=== PATIENT | male | born 1955 | race Caucasian/White ===

== ENCOUNTER 2016-10-07 07:00 | Inpatient (IN) | payer OTHER, MEDICARE ==
[~2016-10-07] VITALS: Ht 162.6 cm; Wt 117.9 kg
[~2016-10-07 07:00] MED LIST: ASPIRIN EC81 M1 PO; BENICAR HCT 401 EAC1 PO; CRESTOR40 M2 PO; DICLOFENAC SOD2.5 M1; FARXIGA10 M1 PO; HUMALOG100 UNIT/1; KOMBIGLYZE XR1 EAC2 PO; LYRICA100 M1 PO; PREDNISOLONE ACE5 ML; TIZANIDINE HCL4 M1 PO; TRAMADOL HCL50 M1 PO; TRAZODONE HCL100 M1 PO
--- NOTE | 2016-11-14 11:29 | Admission Core Measures ---
Admission Meds I reviewed the following Meds: Current Medications Sig/Matt Start time Last Medication Dose Stop Time Status Admin Cefazolin Sodium 2,000 MG ONCE 11/14 0000 NR (Kefzol-Ancef Inj) 11/14 2358 Dexamethasone 10 MG ONCE 11/14 0000 NR (Decadron) 11/14 2358 Heparin Sodium 5,000 UNIT ONCE 11/14 0000 NR (Porcine) 11/14 2358 Acute Coronary Syndrome Inclusion Criteria ACS Diagnosis No Inpatient Core Measures LDL Reminder: If No, please order W/I first 24hr of stay Congestive Heart Failure Inclusion Criteria CHF Diagnosis No Cerebrovascular accident Inclusion Criteria CVA/TIA Diagnosis No Inpatient Core Measures Bedside Swallow Eval Reminder: If BSE failed, place ST order Antithrombotic Reminder: Order Antithrombotic Medication by end of day 2 Antithrombotic Reminder: Document Reason Antithrombotic Not ordered by end of day 2 AFIB/Flutter Reminder: If Present, add to problem list AFIB/Flutter Reminder: Order Anticoag Medication for pts with AFIB/Flutter Atherosclerosis Reminder: If Present, add to problem list LDL Reminder: If No, please order W/I first 24hr of stay PT Order Reminder: If No, please order Venous thromboembolism Inpatient Core Measures VTE Risk Factors: Age > 40, Obesity, Surgery [facility] prophylaxis d/t No contraindications No VTE Pharm Prophylaxis d/t No contraindications Inclusion Criteria - Per Current guidelines, there needs to be overlap - treatment for the first 5 days of Warfarin therapy. - Parenteral Anticoagulation (IV or SC) needs to be - given along with Warfarin therapy. VTE Diagnosis No VTE Type NONE VTE Confirmed by (Test) NONE Problem List As ranked by this Provider includes Assessment & Plan 1. Morbid obesity 2. Hypertension 3. Diabetes 4. S/P laparoscopic sleeve gastrectomy HOME MEDS Home Med List Aspirin (Ecotrin*) 81 MG TABLET.DR 1 TAB PO DAILY PROPHO (Reported) Dapagliflozin Propanediol (Farxiga) 10 MG TABLET 1 TAB PO DAILY DM (Reported) Diclofenac Sodium 0.1 % DROPS 1 DROP BID EYE INFLAMMATION (Reported) Olmesartan/Hydrochlorothiazide (Benicar Hct 40-25 MG Tablet) 40 MG-25 MG TABLET 1 TAB PO DAILY HTN (Reported) Prednisolone Acetate 1 % DROPS.SUSP 1 DROP BID EYE INFLAMMATION (Reported) Pregabalin (Lyrica) 100 MG CAPSULE 1 TAB PO BID NEUROPATHY (Reported) Rosuvastatin Calcium (Crestor) 40 MG TABLET 1 TAB PO DAILY CHOL (Reported) Saxagliptin HCl/Metformin HCl (Kombiglyze XR 2.5-1,000 MG Tab) 2.5 MG-1,000 MG TBMP.24HR 1 TAB PO BID DM (Reported) Tizanidine HCl 4 MG TABLET 1 TAB PO TID PRN SPASM (Reported) Tramadol HCl 50 MG TABLET 1 TAB PO EVERY 6 HRS PRN PAIN (Reported) Trazodone HCl 100 MG TABLET 1 TAB PO NIGHTLY SLEEP (Reported)
--- NOTE | 2016-11-14 11:35 | Surg Short-stay <48hrs Dis Sum ---
See Addendum Visit Information Visit Dates Admission Date: 11/14/16 Discharge Date: 11/16/16 Surgical Short Stay DC Summary Admission Diagnosis: MORBID OBESITY, HX IDDM, HTN Final Diagnosis: SAME, S/P SLEEVE GASTRECTOMY (11/14/16) Procedure(s): LAPAROSCOPIC SLEEVE GASTRECTOMY (11/14/16) Summary/Significant Findings: Electively scheduled laparoscopic sleeve gastrectomy by (11/14/16), which went routinely. called for consult immediately for diabetes requiring insulin pump, co-management. Stage 1 bariatric diet started post-op, and upper GI study done on post-op day#1 to rule out sleeve leak. Lovenox teaching done prior to discharge to home. Medications clarified with for discharge planning purposes with respect to management of his diabetes. Condition at Discharge: stable Discharge Disposition: home or self care Discharge instructions provided to patient/family: Yes Post discharge follow-up plan: one week follow up appointment with discharge instructions/education provided lovenox teaching done for home use prescriptions given for pain control and protonix management of diabetes as per
--- NOTE | 2016-11-14 11:50 | Patient Discharge Instructions ---
Discharge Instructions General Discharge Information You were seen/treated for: morbid obesity, hx iddm, htn You had these procedures: laparoscopic sleeve gastrectomy (11/14/16) Watch for these problems: fever>101.3, increased pain, redness/swelling/drainage, dizziness, shortness of breath, chest pains No bath, but you may shower: Yes Other wound care: ok to remove outer dressings. leave white steri strips in place. keep incisions clean & dry. ok to shower. Diet Continue normal diet: Yes Recommended Diet: Bariatric Additional DIET Information: weekly bariatric stage diet advancements as tolerated, as directed Activity Full Activity/No Limits: No Activity Self Limited: Yes Pounds, do NOT lift more than: 10 Other activity limits: no heavy lifting. no strenuous activity. Additional ACTIVITY Info: walk frequently Acute Coronary Syndrome Inclusion Criteria At DC or during hospital stay patient has or had the following: ACS DIAGNOSIS No Discharge Core Measures Meds if any: Prescribed or Continued at Discharge Meds if any: NOT Prescribed or Continued at Discharge Congestive Heart Failure Inclusion Criteria At DC or during hospital stay patient has or had the following: CHF DIAGNOSIS No Discharge Core Measures Meds if any: Prescribed or Continued at Discharge Meds if any: NOT Prescribed or Continued at Discharge Cerebrovascular accident Inclusion Criteria At DC or during hospital stay patient has or had the following: CVA/TIA Diagnosis No Discharge Core Measures Meds if any: Prescribed or Continued at Discharge Meds if any: NOT Prescribed or Continued at Discharge Venous thromboembolism Inclusion Criteria VTE Diagnosis No VTE Type NONE VTE Confirmed by (Test) NONE Discharge Core Measures - Per Current guidelines, there needs to be overlap - treatment for the first 5 days of Warfarin therapy. - If discharged on Warfarin prior to 5 days of - overlap therapy, the patient will need to be - assessed for post discharge needs including - *Post discharge parental anticoagulation - *Warfarin and/or parental anticoagulation education - *Follow up date to check INR post discharge At least 5 days overlap therapy as Inpatient No Meds if any: Prescribed or Continued at Discharge Note: Overlap Therapy is Warfarin and Anticoagulant Meds if any: NOT Prescribed or Continued at Discharge
[2016-11-14] MEDS ORDERED: HYCET 7.5 MG-3473 ML PO (11:56)
[2016-11-14] MEDS ORDERED: PROTONIX40 M3 PO (11:56)
[2016-11-14] MEDS ORDERED: LOVENOX40 MG/0.1 SC (11:56)
--- NOTE | 2016-11-14 13:09 | Cons- Endocrinology ---
General Information and HPI Consulting Request Date of Consult: 11/14/16 Requested By: surgical team Reason for Consult: management of DM type 2 Source of Information: patient, family Exam Limitations: no limitations History of Present Illness: Patient was admitted and s/p SLEEVE gastroplasty. He has had DM type 2. He used to be on Lantus 80 units daily, Humalog 18 units before meals, Kombiglyze XL 2.5 /1000 mg twice a day and Farxiga. Two years ago, he was put on Meditronic insulin pump. However, over past 3 days prior to the surgery, he wasn't on insulin pump and didn't receive any insulin as his glucose level was low. This morning, his glucose level was 146 prior to the surgery. During the operation, he received Decadron. Repeat FSG at 12 pm was 221. He feels nauseous and is receiving LR. Allergies/Medications Allergies: Coded Allergies: duloxetine (From CYMBALTA) (09/27/16) escitalopram (From LEXAPRO) (09/27/16) fluoxetine (09/27/16) levomilnacipran (From FETZIMA) (09/27/16) atorvastatin (From LIPITOR) (MYALGIAS 09/27/16) Home Med List: Aspirin (Ecotrin*) 81 MG TABLET.DR 1 TAB PO DAILY PROPHO (Reported) Dapagliflozin Propanediol (Farxiga) 10 MG TABLET 1 TAB PO DAILY DM (Reported) Diclofenac Sodium 0.1 % DROPS 1 DROP BID EYE INFLAMMATION (Reported) Enoxaparin Sodium (Lovenox) 40 MG/0.4 ML SYRINGE 0.4 ML SC DAILY blood clot risk reduction continue lovenox injections as directed prescription given pre-op Hydrocodone/Acetaminophen (Hycet 7.5 MG-325 MG/15 Ml Soln) 7.5 MG-325 MG/15 ML SOLUTION 15 ML PO Q4-6 PRN PRN pain control take as directed. do not combine with tylenol. Insulin Lispro (Humalog) 100 UNIT/ML CARTRIDGE INSULIN PUMP (Reported) Olmesartan/Hydrochlorothiazide (Benicar Hct 40-25 MG Tablet) 40 MG-25 MG TABLET 1 TAB PO DAILY HTN (Reported) Pantoprazole Sodium (Protonix) 40 MG TABLET.DR 1 TAB PO DAILY ulcer risk reduction take as directed for 2-3 months post-op Prednisolone Acetate 1 % DROPS.SUSP 1 DROP BID EYE INFLAMMATION (Reported) Pregabalin (Lyrica) 100 MG CAPSULE 1 TAB PO BID NEUROPATHY (Reported) Rosuvastatin Calcium (Crestor) 40 MG TABLET 1 TAB PO DAILY CHOL (Reported) Saxagliptin HCl/Metformin HCl (Kombiglyze XR 2.5-1,000 MG Tab) 2.5 MG-1,000 MG TBMP.24HR 1 TAB PO BID DM (Reported) Tizanidine HCl 4 MG TABLET 1 TAB PO TID PRN SPASM (Reported) Tramadol HCl 50 MG TABLET 1 TAB PO EVERY 6 HRS PRN PAIN (Reported) Trazodone HCl 100 MG TABLET 1 TAB PO NIGHTLY SLEEP (Reported) Review of Systems Review of Systems Constitutional: Reports: see HPI. GI: Reports: nausea. Hematologic/Endocrine: Reports: see HPI. Past History Medical History Cardiovascular: hypertension, hyperlipidemia Endocrine: diabetes type 2 Surgical History Surgical History: non-contributory Exam & Diagnostic Data Last 24 Hrs of Vital Signs/I&O vital signs stable Physical Exam General Appearance: sleepy due to anesthesia Neck: normal inspection Respiratory: lungs clear Cardiovascular: regular rate/rhythm Gastrointestinal: soft, distention Extremities: no edema Labs/Emre Results: FSG 221 at 12 pm today in PACU. Assessment/Plan Assessment/Plan Patient has diabetes type 2, was on Medtronics insulin pump prior to admission. He underwent SLEEVE gastroplasty this morning. He received Decadron in the OR. Currently he feels nauseous and is receiving LR. The most recent FSG was 221. DM management: 1. monitor FSG every 4 hours; 2. start Novolog coverage every 4 hours-- detail see the inpatient DM order; 3. his will bring in his insulin pump today and then I will review the settings. 4. monitor electrolytes at 3 pm. please inform me if his FSGs is > 250 twice and then his DM regimen will be adjusted accordingly. will follow. Consult Acknowledgment - Thank you for your consult request.
[2016-11-14 13:30] VITALS: BP 132/74
--- NOTE | 2016-11-14 14:00 | NUR ---
ADMISSION NOTE: PT ARRIVED TO FLOOR AT 1314. PT A&O, VSS CHARTED. PT AMBULATED FROM STRETCHER TO JULIANNA CHAIR. IVF INFUSING. 5 DRESSINGS TO ABD INTACT THE DSG TO RIGHT ABD AND LOWER ABD WITH SCANT BLOODY DNG. PT EDUCATED ON NEED FOR AMULATION AND DIET / LOG AT BEDSIDE. WILL CONTINUE TO MONITOR.
--- NOTE | 2016-11-14 15:55 | PN- Bariatrics ---
Subjective Subjective: PT. REPORTS FEELING "SORE" HAD MILD TRANSIENT NAUSEA EARLIER, NOW RESOLVED.NO EMESIS. DENIES CHEST PAIN OR SOB Objective Vital Signs and I&Os Vital Signs Date Time Temp Pulse Resp B/P Pulse O2 O2 Flow FiO2 Ox Delivery Rate 11/14 1400 95 Room Air Room Air 11/14 1330 98.1 82 18 132/74 94 Room Air Room Air Intake & Output 11/14 1600 11/14 0800 11/14 0000 11/13 1600 11/13 0800 11/13 0000 Intake Total 350 Output Total 225 Balance 125 Intake, IV 200 Intake, Oral 150 Output, Urine 225 Patient 260 lb Weight ALERT , ORIENTED, APPROPRIATE,LOOKS COMFORTABLE, SITTING IN CHAIR, FAMILY AT BEDSIDE HEART REGULAR LUNGS CLEAR ABDOMEN OBESE, SOFT. MULTIPLE PORT SITES. RUQ PORT SITE DRESSING SATURATED WITH BLOOD BUT WITHOUT ACTIVE BLEEDING EXTREMITIES WITHOUT CALVES PAIN Assessment/Plan Assessment/Plan S/P LAP. GASTRIC SLEEVE POD #0 STABLE HEMODYNAMICALLY, VITAL SIGNS IN ACCEPTABLE LIMITS ABDOMINAL EXAM EXPECTED. PORT SITES INTACT/ RUQ PORT SITE WITH BLOODY DRAINAGE BUT WITHOUT ACTIVE BLEED. PAIN CONTROLLED WITH CURRENT REGIMEN DM; ENDOCRINE CONSULT APPRECIATED.LAST BS WAS 215. HAS BEEN ON NOVALOG Q 4 HRS CONT. STAGE 1 DIET TOLERATED OOB ELECTROLYTES PENDING FOR 2 PM TODAY ROUTINE LABS PENDING FOR TOMORROW. Core Measures/Miscellaneous Venous Thromboembolism VTE Risk Factors: Age > 40, Obesity, Surgery VTE Contraindications: No Contraindications VTE Diagnosis: No VTE Type: NONE VTE Confirmed by (Test): NONE Beta Kal Is Beta Kal a Home Med? No Antibiotics Is Patient on Antibiotics? No
--- NOTE | 2016-11-14 16:54 | Operative Report ---
Operative/Inv Procedure Report Surgery Date: 11/14/16 Name of Procedure: Laparoscopic Sleeve Gastrectomy Pre-Operative Diagnosis: Morbid obesity, sleep apnea Post-Operative Diagnosis: same Estimated Blood Loss: less than 50ml Surgeon/Language Instructor: BROOKE DOUGLAS,Peter. STELLA Lino Anesthesia: general endotracheal tube IV Fluids: LR Urine Output: n/a Drains: none Specimens: portion of stomach Complications: none Condition: stable Operative Indication: see admission H&P Operative/Procedure Note Note: After informed consent and proper identification the patient was taken to the operating room and placed on the operating room table in the supine position Venodyne stockings were applied and underwent a general endotracheal anesthetic the abdomen was prepped and draped in normal sterile fashion using an Ethicon Visiport and a 0 laparoscope through 1 cm incision the left upper quadrant we entered the abdominal cavity without difficulty and insufflated with 14 mm of CO2 pressure. We had excellent visualization the liver was remarkably smooth glistening without any fatty infiltration. Additional trochars were placed 25 mm trochars in each of the subcostal margin a [place] liver retractor in the upper midline to retract the left lobe of the liver and a 15 mm trocar in the right mid abdomen we had anesthesia decompress the stomach with an orogastric tube and then remove it using a sonic excision scalpel divided the vascular attachments along the greater curvature of the stomach approximately 6 cm from the pylorus opposite the angularis. We had excellent visualization of the retrogastric space reflected the fundus of the stomach off the left rubin. We had anesthesia place a 38 Telugu bougie into the stomach and using this as a guide we used a Endo PEDRO stapler firing 2 black load cartridges with seam guard followed by 2 purple load cartridges with seam guard an additional 45 purple cartridge this completely transected the remnant stomach from the newly created sleeve. There is no significant bleeding. We had anesthesia remove the bougie we placed the remnant stomach in a 15 Endo Catch bag removed the specimen through the 15 mm trocar port we visualized the rest of the ports being removed from the abdominal cavity sponge and instrument counts were correct we closed the skin incisions with 4-0 Monocryl subcuticular stitches patient was extubated and taken the recovery room in stable condition Findings: small normal liver, no evidence of hiatal hernia Discharge Disposition: PACU
[2016-11-14 18:25] VITALS: BP 128/78
[2016-11-14 20:20] VITALS: BP 130/78
[2016-11-14 22:59] VITALS: BP 137/80
[2016-11-15 07:37] VITALS: BP 134/71
--- NOTE | 2016-11-15 08:09 | PN- General Surgery ---
Subjective Subjective: No overnight events. NO Nausea, vomiting and ambulating and voiding spontaneously. He reports he is concerned about his blood sugar level as he did not get his home insulin pump. No other complaints. Objective Vital Signs and I&Os Vital Signs Date Time Temp Pulse Resp B/P Pulse O2 O2 Flow FiO2 Ox Delivery Rate 11/15 0737 98.1 98 18 134/71 95 Room Air 11/15 0600 Room Air 11/14 2259 98.1 108 20 137/80 96 Room Air 11/14 2200 Room Air 11/14 2020 98.1 97 20 130/78 98 Room Air 11/14 1825 98.6 103 18 128/78 92 11/14 1800 95 Room Air Room Air 11/14 1658 Room Air Room Air 11/14 1400 95 Room Air Room Air 11/14 1330 98.1 82 18 132/74 94 Room Air Room Air Intake & Output 11/15 1600 11/15 0800 11/15 0000 11/14 1600 11/14 0800 11/14 0000 Intake Total 830 930 350 Output Total 900 1100 225 Balance -70 -170 125 Intake, IV 800 300 200 Intake, Oral 30 630 150 Output, Urine 900 1100 225 Patient 260 lb Weight Physical Exam: Not in any distress,, alert oriented 3 resting in chair. Lung sounds were clear to auscultate bilaterally with no additional sounds Heart regular rate and rhythm. Abdomen is obese soft nondistended appropriate tenderness to palpation in the upper abdomen near the incision site. The lateral PORT incision site for dressing was sustained with sanguinous fluid. No active drainage. Current Medications: Current Medications Sig/Matt Start time Last Medication Dose Route Stop Time Status Admin Acetaminophen 1,000 MG .STK-MED ONE 11/14 0953 DC IV 11/14 0954 Acetaminophen/ 15 ML Q6P PRN 11/14 1345 11/15 Hydrocodone Bitart PO 0603 Cefazolin Sodium 2,000 MG ONCE 11/14 0000 DC IV 11/14 235 Dexamethasone 10 MG ONCE 11/14 0000 DC IV 11/14 2359 Dextrose/Sodium 1,000 ML Q13H 11/14 1415 DC 11/14 Chloride IV 1419 Fentanyl Citrate 250 MCG .STK-MED ONE 11/14 0952 DC IM 11/14 0953 Heparin Sodium 5,000 UNIT Q8 11/14 2199 AC 11/15 (Porcine) SC 0603 Heparin Sodium 5,000 UNIT ONCE 11/14 0000 DC (Porcine) SC 11/14 2359 Hydromorphone HCl 1 MG Q4P PRN 11/14 1345 AC 11/14 IV 2218 Insulin Aspart 0 Q4 11/14 1400 AC 11/15 SC 0603 Ketorolac 1 GTT BID 11/14 2200 AC 11/14 Tromethamine OPH 2209 Lactated Ringer's 1,000 ML Q10H 11/14 1900 AC 11/15 IV 0255 Midazolam HCl 2 MG .STK-MED ONE 11/14 0952 DC IM 11/14 0953 Ondansetron HCl 4 MG Q6P PRN 11/14 1345 AC IV Pantoprazole Sodium 40 MG DAILY 11/15 1000 AC IV Prednisolone 1 GTT BID 11/14 2199 AC 11/14 OPH 2218 Pregabalin 100 MG BID 11/14 2200 AC 11/14 PO 2219 Simethicone 40 MG Q6P PRN 11/14 1345 AC 11/14 PO 1636 Tizanidine HCl 4 MG TID PRN 11/14 1600 AC PO Tramadol HCl 50 MG Q4-6 PRN PRN 11/14 1345 AC PO Tramadol HCl 100 MG Q4-6 PRN PRN 11/14 1345 AC PO Trazodone HCl 50 MG AT BEDTIME NEED.. 11/14 1345 AC PO Results Last 48 Hours of Labs: Laboratory Tests 11/14 1410 Chemistry Sodium (137 - 145 mmol/L) 128 L Potassium (3.5 - 5.1 mmol/L) 3.9 Chloride (98 - 107 mmol/L) 95 L Carbon Dioxide (22 - 30 mmol/L) 21 L Anion Gap (5 - 16) 12 BUN (9 - 20 mg/dL) 10 Creatinine (0.7 - 1.2 mg/dL) 0.6 L Estimated GFR (>60 ml/min) > 60 BUN/Creatinine Ratio (7 - 25 %) 16.7 Assessment/Plan Assessment/Plan 61-year-old obese male with a BMI 44 status post laparoscopic sleeve gastrectomy. pain is well controlled with current oral regimen and doing well. Therefore the plan is will follow up on the upper GI study today. Will remain nothing by mouth until the study . IF stud is negative for leak was initiated on stage I diet. Core Measures/Miscellaneous Venous Thromboembolism VTE Risk Factors: Age > 40, Obesity, Surgery VTE Contraindications: No Contraindications VTE Diagnosis: No VTE Type: NONE VTE Confirmed by (Test): NONE Beta Kal Is Beta Kal a Home Med? No Antibiotics Is Patient on Antibiotics? No
[2016-11-15 09:21] LABS: ABSOLUTE BASOPHIL COUNT 0 /CUMM (0.0-0.2); ABSOLUTE EOSINOPHIL COUNT 0 /CUMM (0.0-0.7); ABSOLUTE GRANULOCYTE CT 18.1 /CUMM (1.4-6.5); ABSOLUTE MONOCYTE COUNT 0.7 /CUMM (0.10-0.60); BASOPHIL % 0.1 % (0.0-2.0); EOSINOPHIL % 0 % (0-5); GRANULOCYTE % 91.5 % (42.2-75.2); HEMATOCRIT 43.5 % (42-52); MEAN CORPUSCULAR HGB 27.6 PG (27.0-31.0); MEAN CORPUSCULAR HGB CONC 33.2 G/DL (33.0-37.0); MEAN CORPUSCULAR VOLUME 83.2 FL (80.0-94.0); MEAN PLATELET VOLUME 9.4 FL (7.4-10.4); PLATELET COUNT 283 /CUMM (130-400); RBC DISTRIBUTION WIDTH 12.9 % (11.5-14.5); RED BLOOD CELL CT 5.22 /CUMM (4.70-6.10)
[2016-11-15 10:14] LABS: WHITE BLOOD CELL COUNT 19.8 /CUMM (4.8-10.8)
--- NOTE | 2016-11-15 12:19 | PN- Diabetes ---
See Addendum Assessment/Plan Assessment: Patient has diabetes type 2, was on Medtron[employer] insulin pump prior to admission. He underwent SLEEVE gastroplasty on 11/14/2016. He received Decadron 10 mg iv in the OR. His FSGs were 179, 226, 227, 242 and 207. He is still kept NPO. He is receiving NS at 75 ml/hour. At home, he was on Kombiglyze XL 2.12/999 mg twice a day, Farxiga 10 mg daily and Medtronic insulin pump with basal insulin of 94.3 units per 24 hours. Basal insulin: midnight 3.6 units per hour 7 am 4.1 units per hour 9 pm 3.9 units per hour IC ratio 5 grams Insulin sensitivity 10 mg/dl target 130-150 mg/dl active insulin time 4 hours. In hospital, he was put on Novolog coverage every 4 hours and his FSGs were 179, 226, 227, 242 and 207. Plan: 1. adjust Novolog coverage every 4 hours as he is still kept NPO--detail see the inpatient DM order. 2. monitor FSGs. will follow. Inpatient Diabetes Orders Every 4 Hours: Bolus Insulin: Novolog < 80 mg/dl: no coverage 80-100 mg/dl: no coverage 101-120 mg/dl: no coverage 121-150 mg/dl: no coverage 151-200 mg/dl: 3 units 201-250 mg/dl: 5 units 251-300 mg/dl: 7 units 301-350 mg/dl: 9 units 351-400 mg/dl: 11 units > 400 mg/dl: 13 units Subjective Subjective: He is still kept NPO. Objective Last 24 Hrs of Vital Signs/I&O Vital Signs Date Time Temp Pulse Resp B/P Pulse O2 O2 Flow FiO2 Ox Delivery Rate 11/15 0737 98.1 98 18 134/71 95 Room Air 11/15 0600 Room Air 11/14 2259 98.1 108 20 137/80 96 Room Air 11/14 2200 Room Air 11/14 2020 98.1 97 20 130/78 98 Room Air 11/14 1825 98.6 103 18 128/78 92 11/14 1800 95 Room Air Room Air 11/14 1658 Room Air Room Air 11/14 1400 95 Room Air Room Air 11/14 1330 98.1 82 18 132/74 94 Room Air Room Air Intake & Output 04/14 1600 11/15 0800 11/15 0000 Intake Total 830 930 Output Total 900 1100 Balance -70 -170 Intake, IV 800 300 Intake, Oral 30 630 Output, Urine 900 1100 Findings Pertinent Lab/Emre Results: Laboratory Tests 11/15 11/14 0835 1410 Chemistry Sodium (137 - 145 mmol/L) 136 L 128 L Potassium (3.5 - 5.1 mmol/L) 4.6 3.9 Chloride (98 - 107 mmol/L) 100 95 L Carbon Dioxide (22 - 30 mmol/L) 22 21 L Anion Gap (5 - 16) 15 12 BUN (9 - 20 mg/dL) 11 10 Creatinine (0.7 - 1.2 mg/dL) 0.8 0.6 L Estimated GFR (>60 ml/min) > 60 > 60 BUN/Creatinine Ratio (7 - 25 %) 13.8 16.7 Glucose (65 - 99 mg/dL) 226 H Magnesium (1.6 - 2.3 mg/dL) 1.7 Hematology CBC w Diff NO MAN DIFF REQ WBC (4.8 - 10.8 /CUMM) 19.8 H RBC (4.70 - 6.10 /CUMM) 5.22 Hgb (14.0 - 18.0 G/DL) 14.4 Hct (42 - 52 %) 43.5 MCV (80.0 - 94.0 FL) 83.2 MCH (27.0 - 31.0 PG) 27.6 RDW (11.5 - 14.5 %) 12.9 Plt Count (130 - 400 /CUMM) 283 MPV (7.4 - 10.4 FL) 9.4 Gran % (42.2 - 75.2 %) 91.5 H Lymphocytes % (20.5 - 51.1 %) 4.9 L Monocytes % (1.7 - 9.3 %) 3.5 Eosinophils % (0 - 5 %) 0 Basophils % (0.0 - 2.0 %) 0.1 Absolute Granulocytes (1.4 - 6.5 /CUMM) 18.1 H Absolute Lymphocytes (1.2 - 3.4 /CUMM) 1.0 L Absolute Monocytes (0.10 - 0.60 /CUMM) 0.7 H Absolute Eosinophils (0.0 - 0.7 /CUMM) 0 Absolute Basophils (0.0 - 0.2 /CUMM) 0 PUBS MCHC (33.0 - 37.0 G/DL) 33.2
--- NOTE | 2016-11-15 12:59 | NUR ---
Consult received for diet education s/p sleeve gastrectomy, thank you for consult. Visited with pt this morning, multiple family members present. Questions answered. Pt took another copy of post-op diet and provided another copy of vitamin handout and discussed. Pt has RD contact information and encouraged to call with any further questions. Discussed post-op nutrition visits as well which he is interested in and will get a referral from Dr Wehlan's office.
--- NOTE | 2016-11-15 13:01 | RADIOLOGY REPORT ---
EXAMINATION: FL UPPER GI SERIES CLINICAL INFORMATION: Status post gastric sleeve surgery. Postop day 1. To assess for presence or absence of gastric leak. COMPARISON: None TECHNIQUE: A single contrast upper GI series with fluoroscopy and spot imaging was performed. The patient ingested Gastrografin without difficulty and was evaluated in the upright and recumbent positions. FINDINGS: Normal expected postsurgical changes of gastric sleeve surgery is present. There is no evidence of any contrast extravasation to suspect Sleeve leak is evident. No evidence of any obstruction to the flow of liquid Gastrografin from the stomach into the duodenum. Incidental note is made of mild tertiary contractions in mid to distal thoracic esophagus, may represent underlying neuromuscular incoordination. FLUOROSCOPY TIME: 36 seconds. NUMBER OF IMAGES: 64 IMPRESSION: 1. Normal appearance of the gastric sleeve surgery. 2. Specifically, no Sleeve leak is visualized. 3. Intermittent tertiary contractions are noted at mid to distal thoracic esophagus, may represent underlying neuromuscular incoordination.
[2016-11-15 14:28] VITALS: BP 130/70
[2016-11-15 22:33] VITALS: BP 130/72
[2016-11-16 07:29] VITALS: BP 136/64
[2016-11-16 08:15] LABS: ABSOLUTE BASOPHIL COUNT 0.1 /CUMM (0.0-0.2); ABSOLUTE EOSINOPHIL COUNT 0 /CUMM (0.0-0.7); ABSOLUTE GRANULOCYTE CT 9.8 /CUMM (1.4-6.5); ABSOLUTE LYMPH COUNT 2.7 /CUMM (1.2-3.4); ABSOLUTE MONOCYTE COUNT 0.8 /CUMM (0.10-0.60); BASOPHIL % 0.7 % (0.0-2.0); EOSINOPHIL % 0.3 % (0-5); GRANULOCYTE % 72.9 % (42.2-75.2); HEMATOCRIT 43.9 % (42-52); MEAN CORPUSCULAR HGB 27.6 PG (27.0-31.0); MEAN CORPUSCULAR VOLUME 83.7 FL (80.0-94.0); MEAN PLATELET VOLUME 9.6 FL (7.4-10.4); PLATELET COUNT 277 /CUMM (130-400); RBC DISTRIBUTION WIDTH 13.4 % (11.5-14.5); RED BLOOD CELL CT 5.24 /CUMM (4.70-6.10); WHITE BLOOD CELL COUNT 13.5 /CUMM (4.8-10.8)
--- NOTE | 2016-11-16 08:41 | PN- Bariatrics ---
Subjective Subjective: resting comfortably no major complaints denies cp, sob, no n+v tolerating diet Objective Vital Signs and I&Os Vital Signs Date Time Temp Pulse Resp B/P Pulse O2 O2 Flow FiO2 Ox Delivery Rate 11/16 0729 98.2 78 20 136/64 92 Room Air 11/16 0600 Room Air 11/16 0000 Room Air 11/15 2233 98.0 83 19 130/72 93 Room Air 11/15 2200 Room Air 11/15 1428 97.9 91 20 130/70 94 Room Air 11/15 1400 97 Room Air Intake & Output 11/16 1600 11/16 0800 11/16 0000 11/15 1600 11/15 0800 11/15 0000 Intake Total 008 044 0153 830 930 Output Total 700 789 579 5349 Balance 0 420 800 -70 -170 Intake, IV 600 300 800 800 300 Intake, Oral 100 120 500 30 630 Output, Urine 700 078 908 7714 Physical Exam: cv: rrr lungs: clear abd: soft, drsg dry no guarding to palp ext: warm, distal cms intact Assessment/Plan Assessment/Plan surgical stable plan f/u endocrine rec's plan to d/c home later today Core Measures/Miscellaneous Venous Thromboembolism VTE Risk Factors: Age > 40, Obesity, Surgery VTE Contraindications: No Contraindications VTE Diagnosis: No VTE Type: NONE VTE Confirmed by (Test): NONE Beta Kal Is Beta Kal a Home Med? No Antibiotics Is Patient on Antibiotics? No
[2016-11-16 09:00] VITALS: BP 154/80
--- NOTE | 2016-11-16 10:13 | PN- Diabetes ---
Assessment/Plan Assessment: Patient has diabetes type 2, was on [employer] insulin pump prior to admission. He underwent SLEEVE gastroplasty on 11/14/2016. He received Decadron 10 mg iv in the OR. The patient's fingerstick blood sugars are improving. His fingerstick blood sugar before breakfast was 172. The patient is on a stage I diet. At home, he was on Kombiglyze XL 2.12/999 mg twice a day, Farxiga 10 mg daily and Medtronic insulin pump with basal insulin of 94.3 units per 24 hours. In the hospital the patient has been on coverage with NovoLog before meals. Plan: Suggest the patient is discharged today he may go home on coverage with Humalog using the samed sliding scale that he is presently on in the hospital. He needs to check his sugars 4 times a day and use the sliding scale before meals periods if his sugars become very high needs to call the office or call his usual diabetes doctor. Patient will follow-up with his usual diabetes doctor as an outpatient within the next week. Subjective Subjective: Some epigastric pain Review of Systems Cardiovascular: Denies: chest pain. Respiratory: Denies: short of breath. Gastrointestinal: Denies: abdominal pain. Skin: Reports: no symptoms. Objective Last 24 Hrs of Vital Signs/I&O Vital Signs Date Time Temp Pulse Resp B/P Pulse O2 O2 Flow FiO2 Ox Delivery Rate 11/16 0900 86 18 154/80 95 Room Air 11/16 0800 94 Room Air 11/16 0729 98.2 78 20 136/64 92 Room Air 11/16 0600 Room Air 11/16 0000 Room Air 11/15 2232 98.0 83 19 130/72 93 Room Air 11/15 2200 Room Air 11/15 1428 97.9 91 20 130/70 94 Room Air 11/15 1400 97 Room Air Intake & Output 11/16 1600 11/16 0800 11/16 0000 Intake Total 700 420 Output Total 700 Balance 0 420 Intake, IV 600 300 Intake, Oral 100 120 Output, Urine 700 Vital Signs Date Time Temp Pulse Resp B/P Pulse O2 O2 Flow FiO2 Ox Delivery Rate 11/16 0900 86 18 154/80 95 Room Air 11/16 0800 94 Room Air 11/16 0729 98.2 78 20 136/64 92 Room Air 11/16 0600 Room Air 11/16 0000 Room Air 04/14 2233 98.0 83 19 130/72 93 Room Air 11/15 2200 Room Air 11/15 1428 97.9 91 20 130/70 94 Room Air 11/15 1400 97 Room Air Intake & Output 11/16 1600 11/16 0800 11/16 0000 Intake Total 700 420 Output Total 700 Balance 0 420 Intake, IV 600 300 Intake, Oral 100 120 Output, Urine 700 Physical Exam General Appearance: alert, awake, comfortable Head: normal appearance Neck: normal inspection Respiratory: normal breath sounds Abdomen: normal bowel sounds Extremities: normal inspection Current Medications: Current Medications Sig/Matt Start time Last Medication Dose Route Stop Time Status Admin Acetaminophen/ 15 ML Q6P PRN 11/14 1345 AC 11/15 Hydrocodone Bitart PO 2344 Heparin Sodium 5,000 UNIT Q8 11/14 2200 AC 11/16 (Porcine) SC 0618 Hydromorphone HCl 1 MG Q4P PRN 11/14 1345 AC 11/15 IV 1812 Insulin Aspart 0 TIDAC/HS 11/15 1700 AC 11/16 SC 0841 Insulin Aspart 0 Q4 11/14 1400 DC 11/15 SC 1138 Ketorolac 1 GTT BID 11/14 2200 AC 11/16 Tromethamine OPH 0853 Magnesium Sulfate 1 GM ONCE ONE 11/15 1015 DC 11/15 Dextrose/Water 100 ML IV 11/15 1414 1131 Ondansetron HCl 4 MG Q6P PRN 11/14 1345 AC IV Pantoprazole Sodium 40 MG DAILY 11/15 1000 AC 11/16 IV 0842 Prednisolone 1 GTT BID 11/14 2200 AC 11/16 OPH 0853 Pregabalin 100 MG BID 11/14 2200 AC 11/16 PO 0849 Simethicone 40 MG Q6P PRN 11/14 1345 AC 11/16 PO 0854 Sodium Chloride 1,000 ML Q13H 11/15 0845 AC 11/15 IV 1131 Tizanidine HCl 4 MG TID PRN 11/14 1600 AC 11/16 PO 0849 Tramadol HCl 50 MG Q4-6 PRN PRN 11/14 1345 AC PO Tramadol HCl 100 MG Q4-6 PRN PRN 11/14 1345 AC PO Trazodone HCl 50 MG AT BEDTIME NEED.. 11/14 1345 AC PO Findings Pertinent Lab/Emre Results: Laboratory Tests 11/16 0730 Chemistry Sodium (137 - 145 mmol/L) 141 Potassium (3.5 - 5.1 mmol/L) 4.1 Chloride (98 - 107 mmol/L) 100 Carbon Dioxide (22 - 30 mmol/L) 25 Anion Gap (5 - 16) 16 BUN (9 - 20 mg/dL) 16 Creatinine (0.7 - 1.2 mg/dL) 0.7 Estimated GFR (>60 ml/min) > 60 BUN/Creatinine Ratio (7 - 25 %) 22.9 Magnesium (1.6 - 2.3 mg/dL) 1.9 Hematology CBC w Diff NO MAN DIFF REQ WBC (4.8 - 10.8 /CUMM) 13.5 H RBC (4.70 - 6.10 /CUMM) 5.24 Hgb (14.0 - 18.0 G/DL) 14.5 Hct (42 - 52 %) 43.9 MCV (80.0 - 94.0 FL) 83.7 MCH (27.0 - 31.0 PG) 27.6 RDW (11.5 - 14.5 %) 13.4 Plt Count (130 - 400 /CUMM) 277 MPV (7.4 - 10.4 FL) 9.6 Gran % (42.2 - 75.2 %) 72.9 Lymphocytes % (20.5 - 51.1 %) 19.9 L Monocytes % (1.7 - 9.3 %) 6.2 Eosinophils % (0 - 5 %) 0.3 Basophils % (0.0 - 2.0 %) 0.7 Absolute Granulocytes (1.4 - 6.5 /CUMM) 9.8 H Absolute Lymphocytes (1.2 - 3.4 /CUMM) 2.7 Absolute Monocytes (0.10 - 0.60 /CUMM) 0.8 H Absolute Eosinophils (0.0 - 0.7 /CUMM) 0 Absolute Basophils (0.0 - 0.2 /CUMM) 0.1 PUBS MCHC (33.0 - 37.0 G/DL) 33.0
--- NOTE | 2016-11-16 10:15 | NUR ---
Notified surgial PA Bo that patient is "still lightheaded". Patient reported feeling lightheaded yesturday. Bp at this time 154/80, P 86. Per surgical PA will notify Dr Whelan as he is in the building and will have him see him before discharging him. Notified patient of this plan. Will continue IVF at 75ml/hr. Call bean in reach.
--- NOTE | 2016-11-16 11:30 | NUR ---
Patient reported that Dr Whelan has seen patient. Reported the lightheadedness to attending. Per Dr Whelan okay for discharge.
[2016-11-16 12:00] VITALS: BP 126/74
--- NOTE | 2016-11-16 12:54 | NUR ---
Patient reporting feeling more clearer, less dizzy. Vital signs stable. Notified Bo KIRK of this. Okay for discharge. Per patient, Dr Whelan wanted dressings changed prior to discharge. Per REAGAN Soriano, nursing may change dressings.
[2016-11-16] MEDS ORDERED: NOVOLOG100 UNIT/2 SC (13:04)
--- NOTE | 2016-11-16 13:15 | NUR ---
Notified Surgical PA Bo of right upper puncture site and lower abdominal puncture site dressing taken off, noted minimal bleeding. Per PA place dry gauze and tape. Reviewed with patient and , dressing changes. Verbalizes understanding.
== END 2016-11-16 14:10 | DRG 621 ==
LOC: ENRESERVTM → ENRESERVDT → 2NB 11-14 01:37 → SDA 11-14 01:37 → ENPENDDIS 11-14 01:37 → 2NB 11-14 13:29
PROVIDERS: Physician Assistant; ADMIT Surgery
PROC: 0DB64Z3 Excision of Stomach, Percutaneous Endoscopic Approach, Vertical (ICD-10-PCS; principal; 2016-11-14)
DX: E66.01 Morbid (severe) obesity due to excess calories (principal); I10 Essential (primary) hypertension; E11.9 Type 2 diabetes mellitus without complications; Z68.41 Body mass index [BMI] 40.0-44.9, adult; Z71.3 Dietary counseling and surveillance; Z96.41 Presence of insulin pump (external) (internal); Z79.4 Long term (current) use of insulin; E78.5 Hyperlipidemia, unspecified; G47.30 Sleep apnea, unspecified; K21.9 Gastro-esophageal reflux disease without esophagitis; F32.9 Major depressive disorder, single episode, unspecified
CPT/HCPCS: 2NBP; 36415; 74240; 82436; 88307; J0131; J0690; J1100; J1170; J1644; J2405; J7042; J7120